=== PATIENT | female | born 1965 | race Caucasian/White ===

== ENCOUNTER 2018-08-19 13:05 | Emergency (ER) | payer MEDICAID ==
[~2018-08-19] VITALS: Ht 162.6 cm; Wt 89.4 kg
[2018-08-19 13:13] VITALS: Ht 162.6 cm; Wt 89.4 kg
[2018-08-19] MEDS ORDERED: SOD CHLORIDE 0.9% 1,000 ML IV ONE (14:00)
[2018-08-19] MEDS ORDERED: METOCLOPRAMIDE 10 MG INJ IV ONE (14:00)
[2018-08-19] MEDS ORDERED: DIPHENHYDRAMINE 50 MG INJ IV ONE (14:00)
--- NOTE | 2018-08-19 16:19 | ERD ---
ER Documentation Chief Complaint Chief Complaint headache, dizziness with nausea started 9am this morning HPI This is a 52-year-old female with no reported past medical history who is presenting with a headache, dizziness and nausea beginning at around 9 AM this morning. The patient reports feeling a lot of stress and feeling very anxious. The [facility] she suddenly started to feel very stressed and anxious and actually passed out. That was when she was evaluated at [facility]. She reported a cough with nausea at the time. She did have elevated blood pressure, but that came down on its own. The patient was ultimately discharged from [facility], diagnosed w ith a cough and upper respiratory infection and elevated blood pressure. She was told to follow-up in the clinic, which she did today. The patient's blood pressure was reportedly low in the clinic, so she was told to come to the emergency department. The patient's blood pressure was high in triage. The patient currently endorses feeling lightheaded with palpitations. She feels very anxious and nauseated. She had a few episodes of nonbilious nonbloody vomiting. She does not endorse chest pain. She also endorses a mild headache she does feel slightly short of breath and was hyperventilating when she first arrived. The patient reports a mild generalized headache. She denies any visi on changes. She has no blurry vision or double vision. She has no photophobia or phonophobia. The patient denies fever or chills. The patient has had no headache or vision changes. The patient does not endorse neck or back pain. The patient denies abdominal pain. The patient denies changes to bowel movements or urination. The patient has had no focal deficits. The patient has had no weakness or numbness or tingling to the face or extremities. ROS All systems reviewed and are negative except as per history of present illness. Medications Home Meds No Active Prescriptions or Reported Meds Allergies Allergies: Coded Allergies: No Known Allergy (Unverified , 08/19/18) PMhx/Soc Medical and Surgical Hx: pt denies Medical Hx, pt denies Surgical Hx History of Surgery: No Hx Neurological Disorder: No Hx Respiratory Disorders: No Hx Cardiac Disorders: No Hx Psychiatric Problems: No Hx Miscellaneous Medical Probl: No Hx Alcohol Use: No Hx Substance Use: No Hx Tobacco Use: No Smoking Status: Never smoker FmHx Family History: No diabetes Physical Exam Vitals Vital Signs Date Temp Pulse Resp B/P (MAP) Pulse Ox O2 O2 Flow FiO2 Time Delivery Rate 08/19/18 71 17 143/74 100 Room Air 14:00 (97) 08/19/18 98.2 94 18 207/95 99 13:13 (132) Physical Exam Const: No apparent distress, well-developed, well-nourished Head: Normocephalic, Atraumatic Eyes: Normal Conjunctiva. Extraocular movements intact. Pupils equal, round and reactive to light ENT: Normal External Ears, Nose and Mouth. Neck: Full range of motion. No meningismus. Resp: Clear to auscultation bilaterally, No wheezes, rales or rhonchi Cardio: Regular rate and rhythm. No murmurs, rubs or gallops Abd: Soft, non tender, non distended. Normal bowel sounds Skin: No petechiae or rashes Back: No midline tenderness. No CVA tenderness Ext: No cyanosis, or edema Neur: Awake and alert, oriented 4. Cranial nerves intact. No facial droop. Normal strength, sensation and coordination. Psych: Anxious Result Diagram: 08/19/18 1341 08/19/18 1341 Results 24 hrs Laboratory Tests Test 08/19/18 13:38 08/19/18 13:41 08/19/18 13:51 08/19/18 14:31 Urine Color COLORLESS Urine Clarity CLEAR Urine pH 9.0 Urine Specific 1.003 [place] Urine Ketones NEGATIVE mg/dL Urine Nitrite NEGATIVE mg/dL Urine Bilirubin NEGATIVE mg/dL Urine NEGATIVE mg/dL Urobilinogen Urine Leukocyte NEGATIVE French/ul Esterase Urine Microscopic 1 /HPF RBC Urine Microscopic 1 /HPF WBC Urine Hemoglobin 1+ mg/dL Urine Glucose NEGATIVE mg/dL Urine Total NEGATIVE mg/dl Protein White Blood Count 9.7 10^3/ul Red Blood Count 5.03 10^6/ul Hemoglobin 14.3 g/dl Hematocrit 45.0 % Mean Corpuscular 89.5 fl Volume Mean Corpuscular 28.4 pg Hemoglobin Mean Corpuscular 31.8 g/dl Hemoglobin Concen t Red Cell 12.6 % Distribution Width Platelet Count 262 10^3/UL Mean Platelet 10.5 fl Volume Immature 0.400 % Granulocytes % Neutrophils % 65.8 % Lymphocytes % 23.2 % Monocytes % 6.9 % Eosinophils % 3.1 % Basophils % 0.6 % Nucleated Red 0.0 /100WBC Blood Cells % Immature 0.040 10^3/ul Granulocytes # Neutrophils # 6.4 10^3/ul Lymphocytes # 2.2 10^3/ul Monocytes # 0.7 10^3/ul Eosinophils # 0.3 10^3/ul Basophils # 0.1 10^3/ul Nucleated Red 0.0 10^3/ul Blood Cells # Prothrombin Time 11.6 Sec Prothrombin Time 0.9 Ratio INR International 0.84 Normalized Ratio Activated 28.1 Sec Partial Thrombopl ast Time Sodium Level 144 mmol/L Potassium Level 4.1 mmol/L Chloride Level 103 mmol/L Carbon Dioxide 32 mmol/L Level Anion Gap 9 Blood Urea 14 mg/dl Nitrogen Creatinine 0.57 mg/dl Est Glomerular > 60 mL/min Filtrat Rate mL/min Glucose Level 96 mg/dl Hemoglobin A1c 6.1 % Calcium Level 10.1 mg/dl Troponin I < 0.012 ng/ml Triglycerides 383 mg/dl Level Cholesterol Level 155 mg/dl LDL Cholesterol, 33 mg/dl Calculated HDL Cholesterol 45 mg/dl Cholesterol/HDL 3.4 RATIO Ratio POC Beta HCG, NEGATIVE Qualitative Urine Opiates Negative Screen Urine Negative Barbiturates Urine Negative Amphetamines Screen Urine Negative Benzodiazepines Screen Urine Cocaine Negative Screen Urine Negative Cannabinoids Current Medications Medications Dose Sig/Veronica Start Time Status Last (Trade) Ordered Route PRN Stop Time Admin Dose Reason Admin Sodium 1,000 ml @ Q1H ONCE 08/19/18 DC 08/19/18 Chloride 1,000 mls/hr IV 14:00 14:33 08/19/18 14:59 10 mg ONCE ONCE 08/19/18 DC 08/19/18 Metoclopramid IV 14:00 14:33 e HCl 08/19/18 14:01 (Reglan) 25 mg ONCE ONCE 08/19/18 DC 08/19/18 Diphenhydrami IV 14:00 14:33 ne HCl 08/19/18 14:01 (Benadryl) Procedures/MDM MDM The patient's presentation warrants further investigation. Previous medical records, if available, were reviewed. LABS The patient's laboratory testing was obtained and reviewed. No emergent treatment was required unless described below. CBC: No E/o systemic infection or severe anemia or thrombocytopenia Chemistry: No E/o severe acidosis or alkalosis or renal failure or liver disease or diabetic ketoacidosis. Metabolic alkalosis, not emergent. Lipid panel: Hypertriglyceridemia PT/INR: No E/o significant coagulopathy Troponin: No E/o acute ischemia Urine: No E/o acute infection or hematuria Tox: No E/o illicit drug use. EKG EKG read by me: Rate/Rhythm: Regular rate and rhythm at a rate of 73 bpm with a sinus arrhythmia Intervals: Normal Marion: Normal Impression: No evidence of acute ischemia. Sinus arrhythmia IMAGING Imaging and Radiology interpretation reviewed. CXR FINDINGS: The heart is within normal limits. The thoracic aorta is calcified. The lungs are clear. There is no pleural effusion or pneumothorax. IMPRESSION: No acute disease. Calcified aorta consistent with atherosclerotic disease. Electronically viewed and signed by Prudencio Davies MD on 08/19/2018 14:08 CT Head FINDINGS: There is no intracranial hemorrhage, mass effect, or midline shift. No extra-axial fluid collection is seen. The ventricles and sulci are normal in size and configuration. The density of the brain is normal, and the alvarez white matter differentiation appears well-preserved. The visualized paranasal sinuses and osseous structures are grossly unremarkable. IMPRESSION: No evidence of acute intracranial pathology. No intracranial bleed. Electronically viewed and signed by Physician Marina on 08/19/2018 15: 17 TREATMENT/DISPOSITION The patient presents for a headache with palpitations, hyperventilation, anxiousness, nausea and vomiting. The patient admits to significant anxiety and stress at home. The patient was initially sent here from the clinic for hypotension, but the patient was hypertensive when she arrived. The patient was treated with IV fluids, Reglan and Benadryl. The Benadryl helped to calm the patient down, and the patient endorses significant improvement. The patient's blood pressure resolved without treatment. The patient was evaluated fully. The patient has a reassuring physical exam. The patient is not clinically orthostatic. The patient is not dizzy. I have decreased suspicion for vertigo. The patient has no signs of emergent or symptomatic anemia. The patient does not have any emergent electrolyte or metabolic emergencies. I have decrease suspicion for a thyroid disorder. The patient is not toxic appearing. I have decreased suspicion for an infectious etiology of symptoms. The patient's EKG and troponin are reassuring. I have low suspicion for acute coronary syndrome. I do not see evidence of any emergent cardiac arrhythmia, which includes but is not limited to heart block, Brugada syndrome or WPW. The patient has no heart murmurs or rales. There is no evidence of cardiomegaly on exam or chest xray. I have low suspicion for hypertrophic cardiomyopathy. I do not see evidence of CHF. The patient does not endorse any chest or pleuritic pain. The history is negative for bleeding or clotting disorders. The patient has not been involved in any recent prolonged trips or surgeries or hospitalizations. The patient has no calf tenderness or swelling. I have decreased suspicion for PE as the etiology of symptoms. The patient does endorse a headache, which I suspect is related to his anxiousness. The patient CT is unremarkable. The patient has no focal deficits. The neurologic exam is reassuring. I have decreased suspicion for cerebral ischemia. There was no trauma or injury. There is no personal or family history of cerebral aneurysm. I have decreased suspicion for SAH or other ICH. I have low suspicion for temporal arteritis, cavernous venous thrombosis, subdural hematoma, epidural hematoma, meningitis. DISCHARGE Upon reevaluation of the patient, symptoms have improved. No emergent diagnoses were identified. At this time, I feel that the patient stable for discharge. The patient was instructed to follow-up with a primary care physician in 1-3 days. The patient will be given strict precautions with which to return to the emergency department. Prescriptions: None The patient's blood pressure was elevated at greater than 120/80 while in the emergency department. The patient was otherwise stable with no evidence of hypertensive urgency or emergency. The patient does not require admission for blood pressure control. I have discussed with the patient the risks of hypertension. I have instructed the patient to return to the ER for any new or worsening symptoms including chest pain, shortness of breath, headache, blurred vision, confusion, nausea, vomiting or LOC. I have advised the patient to follow up with the primary care physician for outpatient monitoring and treatment for hypertension in 1-3 days. Disclaimer: Inadvertent spelling and grammatical errors are likely due to EHR/dictation software use and do not reflect on the overall quality of patient care. Note that the electronic time recorded on this note does not necessarily reflect the actual time of the patient encounter. Departure Diagnosis: Primary Impression: Anxiousness Additional Impressions: Elevated blood pressure reading Headache Headache type: unspecified Headache chronicity pattern: acute headache Intractability: not intractable Qualified Codes: R51 - Headache Lightheadedness Metabolic alkalosis Hypertriglyceridemia Pre-syncope Condition: Stable Patient Instructions: Anxiety Reaction, Hypertension, To Be Confirmed, Near Syncope, Unknown, Self-Care for Headaches Additional Instructions: Thank you for for coming to [facility] for your care today. Please ask your nurse or provider if you have questions about your care today and do not leave until all your questions have been answered. Please use any medications given as directed and follow-up with your doctor (or the doctor you were referred to) in the next 1-3 days. If you do not have a primary care doctor you may follow up at the [facility] (listed below). You may also use motrin and tylenol as needed for fever and/or pain unless instructed otherwise by your provider or nurse. Indications for more urgent follow-up have been discussed, but you may return to the Emergency Department at ANY time for any worrisome or worsening symptoms. If you have abdominal pain, please know that no test or exam you received is perfect and you should follow up within 8 hours for continued pain. If you had any imaging studies today, such as an X-Ray or CT Scan, these studies will be reviewed later by a radiologist. You will be called if there are important findings that were not identified today, so make sure the contact information you provided at registration is correct. If you received any narcotic pain control medicine today, such as Vicodin, Morphine or Dilaudid, your coordination and judgment may be affected for a number of hours. Please do not drive or operate heavy machinery, and you may want someone to assist you at home. If you were given a prescription for narcotic medication, be aware that it is very addictive- use sparingly and only if necessary. PLEASE SEEK FURTHER EVALUATION AND MANAGEMENT AT YOUR DOCTORS OFFICE WITHIN THE NEXT 1-3 DAYS. IT IS YOUR RESPONSIBILITY TO MAKE AN APPOINTMENT FOR FOLOW-UP CARE. IF YOU HAVE A PRIMARY DOCTOR, PLEASE CALL THEIR OFFICE TO SCHEDULE AN APPOINTMENT FOR FOLLOW UP. IF YOU DO NOT HAVE A PRIMARY DOCTOR YOU CAN CALL OUR PHYSICIAN REFERRAL HOTLINE AT IF YOU CAN NOT AFFORD TO SEE A PHYSICIAN YOU CAN CHOSE FROM THE FOLLOWING [facility] CLINICS: [facility] [address] [facility] [place] [address] [facility] [address] [facility] [address] [facility] [address] [facility]. [facility]. [address] JESSICA MOODY MD August 19, 2018 16:06
[2018-08-19 16:45] VITALS: BP 148/90; PULSE 69; RESP 16
== END 2018-08-19 16:45 | disposition home or self-care (01) ==
LOC: E/R 13:05
DX: F41.9 Anxiety disorder, unspecified (principal); R51 Headache; R55 Syncope and collapse; E78.1 Pure hyperglyceridemia; E87.3 Alkalosis; R03.0 Elevated blood-pressure reading, without diagnosis of hypertension
CPT/HCPCS: 36415; 70450; 71045; 80048; 80061; 80307; 81001; 81025; 83036; 84484; 85025; 85610; 85730; 93005; 96361; 96374; 96375; J1200; J2765; J7030; Z7502